=== PATIENT | female | born 1950 | race Caucasian/White ===

== ENCOUNTER → 2019-08-01 | Outpatient (CLI) | payer MEDICARE, OTHER | LOC: COL.RAD 09:14 | DX: M67.431 Ganglion, right wrist (principal); M19.131 Post-traumatic osteoarthritis, right wrist ==

== ENCOUNTER → 2019-10-05 | Outpatient (CLI) | payer MEDICARE, OTHER | LOC: COL.RAD 13:50 | DX: M48.02 Spinal stenosis, cervical region (principal); M47.812 Spondylosis without myelopathy or radiculopathy, cervical region; M50.221 Other cervical disc displacement at C4-C5 level; M50.222 Other cervical disc displacement at C5-C6 level; M50.223 Other cervical disc displacement at C6-C7 level ==

== ENCOUNTER 2020-03-11 10:18 | Outpatient (RCR) | payer MEDICARE, OTHER | END 2020-05-27 | disposition home or self-care (01) | LOC: WSPT | DX: M25.561 Pain in right knee (principal) ==

== ENCOUNTER 2020-10-04 08:33 | Outpatient (RCR) | payer MEDICARE, OTHER | END 2021-01-02 | LOC: WSPT | DX: M25.561 Pain in right knee (principal) ==